=== PATIENT | female | born 1980 | race Caucasian/White ===

== ENCOUNTER 2016-11-14 14:07 | Emergency (ER) | payer OTHER ==
[~2016-11-14] VITALS: Ht 165.1 cm; Wt 120.2 kg
[~2016-11-14 14:07] MED LIST: ACYCLOVIR 800800 M1 PO
[2016-11-14] MEDS ORDERED: PENICILLIN V P500 MG PO (14:28)
[2016-11-14] MEDS ORDERED: MOBIC15 MG PO (14:29)
[2016-11-14] MEDS ORDERED: BENTYL 20 MG TA20 M1 PO (15:07)
[2016-11-14 15:59] LABS: URINE BILIRUBIN NEGATIVE (Negative); URINE BLOOD NEGATIVE (Negative); URINE COLOR YELLOW; URINE GLUCOSE-RANDOM* NEGATIVE (Negative); URINE KETONES NEGATIVE (Negative); URINE LEUKOCYTES-REFLEX TRACE (Negative); URINE PROTEIN (DIPSTICK) NEGATIVE (Negative); URINE SPECIFIC GRAVITY >= 1.030 (1.003-1.035); URINE UROBILINOGEN 0.2 E.U./dl (0.2-1.0)
[2016-11-14 16:00] LABS: ABSOLUTE NEUTROPHILS 5.8 thou/uL (1.4-8.2); EOSINOPHILS 2.7 % (0.0-3.0); HEMATOCRIT 41.4 % (37.0-47.0); HEMOGLOBIN 14.1 gm/dL (12.0-15.0); LYMPHOCYTES 14.7 % (24.0-44.0); MCH 29.4 pg (26.0-34.0); MCV 86.4 fL (80.0-100.0); MONOCYTES 5.1 % (1.0-8.0); PLATELET COUNT 291 thou/uL (150-400); POLYS 76.5 % (36.0-66.0); RBC 4.79 mil/uL (4.20-5.00); RDW 13.8 % (10.5-14.5); WBC 7.6 thou/uL (4.0-11.0)
[2016-11-14 16:02] LABS: MANUAL DIFF NO
[2016-11-14 16:12] LABS: CALCIUM 8.6 mg/dL (8.5-10.1); CREATININE 0.7 mg/dL (0.6-1.0)
[2016-11-14 16:17] LABS: ALBUMIN 3.1 g/dL (3.4-5.0); TOTAL BILIRUBIN 0.4 mg/dL (<0.1-1.0); TOTAL PROTEIN 7.1 g/dL (6.4-8.2)
[2016-11-14 16:30] VITALS: BP 151/72
== END 2016-11-14 16:45 | disposition home or self-care (01) ==
LOC: ER 14:07
PROVIDERS: Physician Assistant
DX: S02.5XXA Fracture of tooth (traumatic), initial encounter for closed fracture (principal); K02.9 Dental caries, unspecified; R10.13 Epigastric pain; X58.XXXA Exposure to other specified factors, initial encounter; Y93.89 Activity, other specified; Y92.89 Other specified places as the place of occurrence of the external cause; Y99.8 Other external cause status

== ENCOUNTER 2016-11-23 14:06 | Emergency (ER) | payer OTHER ==
[~2016-11-23] VITALS: Ht 165.1 cm; Wt 120.2 kg
[~2016-11-23 14:06] MED LIST changes: +BENTYL 20 MG TA20 M1 PO; +MOBIC15 MG PO; +PENICILLIN V P500 MG PO
[2016-11-23] MEDS ORDERED: DICLOFENAC SODI75 MG PO (14:31)
[2016-11-23 15:43] VITALS: BP 130/78
== END 2016-11-23 15:45 | disposition home or self-care (01) ==
LOC: ER 14:06
DX: K08.89 Other specified disorders of teeth and supporting structures (principal)

== ENCOUNTER 2017-01-27 15:45 | Emergency (ER) | payer OTHER ==
[~2017-01-27] VITALS: Ht 167.6 cm; Wt 117.9 kg
[~2017-01-27 15:45] MED LIST changes: +DICLOFENAC SODI75 MG PO
[2017-01-27] MEDS ORDERED: MOBIC7.5 MG PO (15:56)
[2017-01-27] MEDS ORDERED: PENICILLIN V P500 MG PO (15:56)
[2017-01-27 16:28] VITALS: BP 146/101
[2017-01-27] MEDS ORDERED: TRAMADOL 50 MG50 MG PO (16:36)
== END 2017-01-27 16:50 | disposition home or self-care (01) ==
LOC: ER 15:45
DX: K08.89 Other specified disorders of teeth and supporting structures (principal)

== ENCOUNTER 2017-07-06 15:58 | Emergency (ER) | payer OTHER ==
[~2017-07-06] VITALS: Ht 167.6 cm; Wt 117.9 kg
[~2017-07-06 15:58] MED LIST changes: +MOBIC7.5 MG PO; +NORCO 5-325 TA1 EACH PO; +TRAMADOL 50 MG50 MG PO
[2017-07-06] MEDS ORDERED: PENICILLIN V P500 MG PO (16:08)
[2017-07-06] MEDS ORDERED: HYDROCODONE-AP1 EAC6 PO (16:08)
[2017-07-06] MEDS ORDERED: MOBIC7.5 MG PO (16:08)
== END 2017-07-06 16:27 | disposition home or self-care (01) ==
LOC: ER 15:58
DX: K04.7 Periapical abscess without sinus (principal); Z88.8 Allergy status to other drugs, medicaments and biological substances; R22.0 Localized swelling, mass and lump, head

== ENCOUNTER 2017-10-21 11:56 | Emergency (ER) | payer OTHER ==
[~2017-10-21 11:56] MED LIST changes: +HYDROCODONE-AP1 EAC6 PO
== END 2017-10-21 14:18 | disposition left against medical advice (07) ==
LOC: ER 11:56
DX: Z53.21 Procedure and treatment not carried out due to patient leaving prior to being seen by health care provider (principal)